=== PATIENT | male | born 1960 | race Caucasian/White ===

== ENCOUNTER 2023-08-13 20:53 | Observation (INO) | payer MEDICARE, SELFPAY ==
[2023-08-13 15:51] VITALS: BP 126/86; BMI 24.4
--- NOTE | 2023-08-13 16:09 | ED.CVA ---
History of Present Illness
General
Chief Complaint: CVA/TIA Symptoms
Time Seen by Provider: 08/13/23 16:00
Onset of Stroke Symptoms
Onset of symptoms known: Yes
Date of onset of symptoms: 08/13/23
Travel History
Have you had any contact with someone who has COVID-19?: No
Do you have any symptoms of coronavirus? Fever > 100 degrees, chills, cough, shortness of breath, sore throat, loss of taste or smell, muscle aches, or headache?: No
History of Present Illness
History of Present Illness:
63-year-old male with history of coronary artery disease, myocardial infarction status post thrombectomy and RCA stent and hyperlipidemia presents to the emergency department for evaluation of word finding difficulties ongoing throughout today.
Somewhat vague but the patient and his partner cannot give me an exact time of onset of symptoms. Patient was apparently normal last night. 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
that he cannot complete sentences fully. He does report lightheadedness and describes a 'warmth' in his head currently. Denies any chest pain or dyspnea. No lower extremity paresthesias or weakness. He is on baby aspirin and statins currently
Past History
Past History
ED Past Medical History: CAD and Other (HIV+, Depression)
ED Past Surgical History: None and Cardiac (Stents)
Social History
Tobacco: Non-smoker
Alcohol: None
Drug: None
Personal: Single
Living: with family
Employment: Employed
Family History
Family History: CAD
Review of Systems
Review of Systems
Allergies reviewed?: Yes
All Other Systems: ROS reviewed and negative except as documented in HPI and ROS
Phy Exam
Physical Exam
Physical Exam:
GEN: Well appearing, NAD, WDWN
HEENT: Oral mucosa moist, no scleral icterus
Cardiac: Regular rate
Lung: No respiratory distress, no tachypnea
MSK: No gross deformity or injuries
Skin: Good color, no pallor or jaundice, no rashes
Neuro: LOC: Alert, responsive, oriented fully, follows commands
EOM: No gaze deficit
Visual avendaño: No hemianopia
Facial: No facial palsy/paralysis
LUE: No drift
RUE: No drift
LLE: No drift
RLE: No drift
Ataxia: No limb ataxia
Sensation: No sensation loss
Language: No aphasia or dysarthria
Extinction: No inattention
Psych: Calm, cooperative
Course
Orders/Labs/Results
Orders:
Orders
08/13/23 15:54
Electrocardiogram (*1) Urgent
Reason for Study: Other
Other Reason for Exam: Possible Stroke
CT Head W/o Iv Contrast Urgent
Comment:
Reason For Exam: tia/cva
Bedside Glucose- Treatment ONCE
EKG- Treatment ONCE
IV Insert/Care/Rem.- Treatment PRN
O2 Therapy [RESP] Urgent
Titrate/Wean O2 to maintain O2 sat greater than (%): 93
Special Instructions: MAINTAIN CONTINUOUS O2 SATS > OR = 93%
08/13/23 16:02
Complete Blood Count/With Diff Urgent
Comprehensive Metabolic Panel Urgent
PTT Urgent
Prothrombin Time Urgent
Troponin I Urgent
08/13/23 18:21
CT Head & Neck Angio W/wo IV Urgent
Comment:
Reason For Exam: stroke symptoms
08/13/23 20:29
Alcohol Urgent
Urine Drug Abuse Screen Urgent
Clopidogrel Bisulfate [Plavix] 300 mg PO NOW STA
08/13/23 20:36
Admit/Transfer Patient As Directed
Co-Sign Provider:
Level of Care: Observation services
Assign to:: Telemetry
Physician / Group: Robby
Diagnosis: Strokelike symptom
Reason for Telemetry: CVA/TIA
Date to Stop Telemetry: 08/16/23
Time to Stop Telemetry: 11:00
08/16/23 11:00
DC Protocol for Telemetry ONCE
Abnormal Lab Results
08/13/23
16:02
MCH 32.3 H pg
(27.0-31.0)
RDW 14.6 H %
(11.5-14.5)
Absolute Monos (auto) 0.9 H 10^3/uL
(0.1-0.6)
Lymphocytes % 15.7 L %
(20.5-51.1)
Monocytes % 10.9 H %
(1.7-9.3)
Chloride 95 L mmol/L
(98-107)
Carbon Dioxide 33 H mmol/L
(22-30)
08/13/23 16:02
08/13/23 16:02
Vital Signs
Initial and Last Documented VS:
Initial Vital Signs
Temp Pulse Resp BP Pulse Ox
97.6 F 90 16 126/86 97
08/13/23 15:51 08/13/23 15:51 08/13/23 15:51 08/13/23 15:51 08/13/23 15:51
Last Documented Vital Signs
Temp Pulse Resp BP Pulse Ox
97.6 F 89 18 120/86 96
08/13/23 15:51 08/13/23 17:17 08/13/23 17:17 08/13/23 17:22 08/13/23 17:17
MDM/Problems Addressed
MDM/Problems Addressed:
63-year-old male presents with waxing waning aphasia over the course of the day.
onset is not clear but is not within the thrombolytic window, additionally his symptoms are nondisabling his speech is quite clear and his aphasia seems to be intermittent.
Blood pressure remained stable in the emergency department. Patient was loaded with Plavix per neurology recommendations, CT head and CT angiogram unremarkable. Will be admitted to the hospital service for further stroke workup
*Critical Care Note
Total Time (30-74mins, 75-104mins- exclusive of procedures): Not Applicable
Update Note
Update Note:
1909: Patient reevaluated after CTA, read is still pending. He does have continued intermittent expressive aphasia stumbles over words midsentence. He continues to have no other lateralizing deficits. Discussed case with neurology who recommended
Plavix load instead of maintenance dosage, we will admit him to the hospital for acute stroke
ED Attending Note
-
Portions of this chart may have been created with voice recognition software.� Occasional wrong word or��sound alike� substitutions may have occurred due to the inherent limitations of voice recognition software.
Discharge Plan
Departure
Patient Disposition: Admit
Date of Disposition: 08/13/23
Time of Disposition: 20:32
Admit to: Med/Surg
Presentation/result/management discussed w/ accepting MD/DO: Hospitalist
Discharge Problem:
Cerebrovascular accident (CVA), Expressive aphasia
Prescriptions:
No Action
'Issentress'
800 mg PO DAILY
Patient Comments:
pt. stated that this was an antiviral medication.
diazepam 10 MG tablet
10 mg PO PRN PRN (Reason: anxiety)
duloxetine 60 MG capsule,delayed release(DR/EC)
60 mg PO DAILY
Norvir:
100 mg PO DAILY
Prevista
800 mg PO DAILY
hydrocodone-ibuprofen [Vicoprofen] 1 EACH tablet
1 ea PO PRN PRN (Reason: pain)
loperamide 2 MG capsule
2 mg PO DAILY
valacyclovir 1,000 MG tablet
1,000 mg PO DAILY
aspirin 81 MG tablet,delayed release (DR/EC)
81 mg PO BID
ranitidine HCl [Zantac] 150 MG tablet
150 mg PO BID
pravastatin 20 MG tablet
20 mg PO DAILY
lisinopril 5 MG tablet
5 mg PO DAILY
metoprolol succinate [Toprol XL] 25 MG tablet extended release 24 hr
25 mg PO DAILY
amoxicillin-pot clavulanate 1 TABLET tablet
1 tab PO Q12 Qty: 19 0RF
Referrals:
UNKNOWN - PT DOES,NOT KNOW [Family Provider] -
[2023-08-13 16:17] LABS: % Basophils 0.4 % (0-2); % Immature Granulocytes 0.4 % (0-0.5); % Lymphocytes 15.7 % (20.5-51.1); % Monocytes 10.9 % (1.7-9.3); % Neutrophils 71.6 % (42.2-75.2); Absolute Eosinophils 0.1 10^3/uL (0-0.7); Absolute Lymphocytes 1.3 10^3/uL (1.2-3.4); Absolute Monocytes 0.9 10^3/uL (0.1-0.6); Absolute Neutrophils 5.8 10^3/uL (1.4-6.5); Hematocrit 47.5 % (39.0-52.0); Hemoglobin 16.5 g/dL (13.0-18.0); Mean Corp Hgb Conc. 34.7 g/dL (33.0-37.0); Mean Corpuscular Hgb 32.3 pg (27.0-31.0); Mean Platelet Volume 8.8 fL (7.4-10.4); Nucleated Red Blood Cells % 0 % (-); Platelet Count 159 10^3/uL (130-400); Red Blood Cell Count 5.11 10^6/uL (4.70-6.10); Red Cell Dist. Width 14.6 % (11.5-14.5); White Blood Cell Count 8.1 10^3/uL (4.8-10.8)
[2023-08-13 16:24] LABS: ALT (SGPT) 24 U/L (0-50); AST (SGOT) 42 U/L (17-59); Albumin 4.6 g/dl (3.5-5.0); Alkaline Phosphatase 42 U/L (38-126); Blood Urea Nitrogen 12 mg/dl (9-20); Calcium 9.4 mg/dl (8.4-10.2); Carbon Dioxide 33 mmol/L (22-30); Chloride 95 mmol/L (98-107); Estimated Creatinine Clearance 93 ml/min; Glucose 99 mg/dl (70-99); INR 1.03; PT 13.3 Sec (11.4-14.6); Sodium 135 mmol/L (135-145); Total Bilirubin 1.3 mg/dl (0.2-1.3); Total Protein 7.5 g/dl (6.3-8.2); eGFR > 60.00
[2023-08-13 16:25] LABS: APTT 25.2 Sec (23.4-35.0)
[2023-08-13 16:27] LABS: Glucose - Point of Care 83 mg/dl (70-99)
[2023-08-13 16:36] LABS: Troponin I 0.013 ng/ml
[2023-08-13 17:22] VITALS: BP 120/86
--- NOTE | 2023-08-13 20:33 | HPS.HSE ---
Family Physician
-
Family Physician: NOT KNOW UNKNOWN - PT DOES
Medical History
Allergies / Home Medications
Allergies reflects when Allergies were last updated in [facility].
Home Medications with original date entered in [facility]
Physical Exam
Vital Signs
Vital Signs
Temp Pulse Resp BP Pulse Ox
97.6 F 89 18 120/86 96
08/13/23 15:51 08/13/23 17:17 08/13/23 17:17 08/13/23 17:22 08/13/23 17:17
Laboratory Results
-
08/13/23 16:02
08/13/23 16:02
Laboratory Results
PT 13.3 Sec (11.4-14.6) 08/13/23 16:02
INR 1.03 08/13/23 16:02
APTT 25.2 Sec (23.4-35.0) 08/13/23 16:02
Total Bilirubin 1.3 mg/dl (0.2-1.3) 08/13/23 16:02
AST 42 U/L (17-59) 08/13/23 16:02
ALT 24 U/L (0-50) 08/13/23 16:02
Alkaline Phosphatase 42 U/L (38-126) 08/13/23 16:02
Troponin I 0.013 ng/ml 08/13/23 16:02
CTA head and neck:
The cervical carotid and vertebral arteries are patent without significant plaque, stenosis, occlusion, or dissection.
No [place] of Rodríguez region aneurysm or stenosis.
No cerebral artery significant plaque, stenosis, thrombus, or occlusion.
CT head: No acute intracranial abnormalities
EKG showed normal sinus rhythm at around 94, [place] 146, QTc 458, normal axis, evidence of prior inferior infarct otherwise no acute abnormalities
Data Reviewed
-
Diagnostic Radiology: Report Reviewed by me and Discussed with Patient
Medical Tests (Nuc Med, Echo, EKG etc): Image Personally Visualized and interpreted, Report Reviewed by me and Discussed with Patient
Lab Data: Labs Reviewed by me and Discussed with Patient
Old Records: Reviewed
Impression/Plan
-
IMPRESSION:
PLAN:
--- NOTE | 2023-08-13 20:39 | HPS.HSE ---
Addendum entered and electronically signed by Guy Bustamante MD 08/13/23 21:14:
Also some IV fluids with normal saline 75 ml/hour x 2 bag with close monitoring for fluid status is looks dry and pressure in the low normal side to keep pressure on the high side
Original Note:
Family Physician
-
Family Physician: NOT KNOW UNKNOWN - PT DOES
Chief Complaint
-
Expressive aphasia
History of Present Illness
63-year-old male with history of chronic systolic congestive heart failure EF around 45%, HIV, coronary artery disease status post stent placed many years ago, presented to the hospital complaining of expressive aphasia, patient able to provide the
information sounds Frustrated because of ability occasionally to express what he wanted to say.
Admitted him to bed last night he was again this morning when he woke up he did not feel right the time went by he noticed he had difficulty expressing what he wanted to say.
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 Eventually decided come to the hospital, or clearly obvious having
expressive aphasia, denies any weakness or numbness in extremities, no chest pain or shortness of breath or fever or chills or any syncope or palpitation, no vision change and no syncope.
No urinary or GI symptoms, no seizure-like activity or weakness.
He injected himself a dose of testosterone which she bought from [place] and he is managing on his own.
Workup in the ER basically showed no acute abnormalities.
He is awake, alert and oriented x 3, hold appropriate conversation but occasionally have difficulty speaking and expressing his thoughts.
Urology been contacted by the ER he was loaded with Plavix 300 mg daily.
Medical History
Past Medical History
Past Medical History: Reports Other
Additional Past Medical History:
Past medical history reviewed:
Coronary artery disease status post stents
Chronic systolic congestive failure
Echo 2016 showed EF around 45%
Dyslipidemia
GERD.
Hypertension
HIV
Insomnia
Testosterone deficiency
Social history: Lives at home with his partner, denies smoking alcohol use but uses marijuana daily.
Family history: Mother had a TIA also has history of hypertension and coronary artery disease.
Past Surgical History: Reports Other
Social History
Unable to obtain full social history at this time due to: Other
Family History
Family History: Other
Allergies / Home Medications
Allergies reflects when Allergies were last updated in [facility].
Home Medications with original date entered in [facility]
Allergy/Medication List:
Allergies
Allergy/AdvReac Type Severity Reaction Status Date / Time
efavirenz [From [facility]] Allergy Rash Verified 08/13/23 15:53
Home Medications
Medication reconciled with the patient.
aspirin 81 mg tablet,delayed release 81 mg PO BID r (Toprol XL) 25 mg PO DAILY 12/15/14
pravastatin 80 mg tablet 20 mg PO DAILY 12/15/14
Trazodone 150 mg at the bedside
Temazepam 15 mg at bedtime
Biktarvy 1 tablet daily
All blood pressure medication he cannot recall
Testosterone enanthate which she brought from [place] and inject himself or regularly.
Review of Systems
-
A 12 point ROS was completed and negative except as noted: Yes
Physical Exam
Vital Signs
Vital Signs
Temp Pulse Resp BP Pulse Ox
97.6 F 89 18 120/86 96
08/13/23 15:51 08/13/23 17:17 08/13/23 17:17 08/13/23 17:22 08/13/23 17:17
physical exam:
General: Alopecia capitis no hair on head, awake, alert and oriented x3, not in distress and sounds frustrated occasionally when he have difficulty expressing his thoughts.
HEENT: No active discharge, ecchymosis or bruising, moist lips, tongue and mucous membrane.
Eyes: No discharge or red conjunctiva, no nystagmus, pupils are reactive and equal
Neck:Supple, no JVD no bruit no goiter.
Respiratory: Normal AP contour and diameter, normal chest wall movement, normal respiratory effort, no respiratory distress,
Lungs: Good air entry bilaterally, no wheezing or rhonchi, no rales or crackles
Heart: S1, S2 regular, normal rate, no added sound.
Gastrointestinal: Positive bowel sounds, soft, nontender, no guarding or rigidity or organomegaly
Musculoskeletal: , no chest wall abnormality or tenderness. All joints and extremities have good range of motion, no muscle tenderness or any joint swelling or tenderness.
Extremities: No pitting edema, good peripheral pulses, good range of motion
Skin: Warm and dry, no ulceration, normal color.
Neurological: Awake, alert and oriented x3, cranial nerve II-XII grossly intact, speech is dysarthric, with normal thought process, extension intention intact, cerebellar sign intact, good muscle tone, normal sensory and motor function, visual field
and acuity intact, NIH score basically is condition on discharge: Awake, alert and oriented x3, answer question properly, able to make own decision and take care of activities of daily living, speech clear and comprehensive, continent of the bowel
and bladder, ambulate without orthopedic assistant, goes home where lives with the family independently.
Psychiatric: Normal mood, normal thought and judgment, normal affect,
Physical Exam
General: Other
Laboratory Results
-
08/13/23 16:02
08/13/23 16:02
Laboratory Results
PT 13.3 Sec (11.4-14.6) 08/13/23 16:02
INR 1.03 08/13/23 16:02
APTT 25.2 Sec (23.4-35.0) 08/13/23 16:02
Total Bilirubin 1.3 mg/dl (0.2-1.3) 08/13/23 16:02
AST 42 U/L (17-59) 08/13/23 16:02
ALT 24 U/L (0-50) 08/13/23 16:02
Alkaline Phosphatase 42 U/L (38-126) 08/13/23 16:02
Troponin I 0.013 ng/ml 08/13/23 16:02
CTA head and neck:
The cervical carotid and vertebral arteries are patent without significant plaque, stenosis, occlusion, or dissection.
No [place] of Rodríguez region aneurysm or stenosis.
No cerebral artery significant plaque, stenosis, thrombus, or occlusion.
CT head: No acute intracranial abnormalities
EKG showed normal sinus rhythm at around 94, [place] 146, QTc 458, normal axis, evidence of prior inferior infarct otherwise no acute abnormalities
Data Reviewed
-
Diagnostic Radiology: Report Reviewed by me and Discussed with Patient
Medical Tests (Nuc Med, Echo, EKG etc): Image Personally Visualized and interpreted, Report Reviewed by me and Discussed with Patient
Lab Data: Labs Reviewed by me and Discussed with Patient
Old Records: Reviewed
Impression/Plan
-
IMPRESSION:
63-year-old male with history of HIV, coronary artery disease status post stent, chronic systolic congestive heart failure with EF around 45%, presented to the hospital after he has been having daily and progressively worsening expressive aphasia,
concern for TIA or stroke, doubt related to his HIV history is look like will consult on CT head did not show any abnormality or mass lesion, testosterone injection could be the culprit as he [place] in [place] and injecting self regularly.
Expressive aphasia concerning for stroke or TIA
Testosterone deficiency inject himself with self purchased testosterone in [place]
History of HIV
Chronic solid congestive heart failure EF around 45%, stable
Coronary artery disease status post stent
Hypertension
Insomnia
PLAN:
Signs and symptoms concerning for stroke or TIA specially with multiple risk factors including coronary artery disease, hypertension, CHF, no injections of his testosterone when he brought it June of this year from [place].
Potential for reviewed and negative
To complete workup with an MRI of brain
Echo
Cardiac monitoring
Neurology consult
PT OT neurocheck
A candidate for tPA since she woke up with not feeling right and symptoms past the window. And his NIH score is 2
Check A1c and lipid panel
Recheck lab
Patient takes aspirin 80 mg twice daily will make it once a day and loaded with Plavix 300 mg per neurology recommendation we will continue 75 mg daily
Takes pravastatin 80 mg daily will continue
Given he cannot recall his blood pressure medication we will hold this pressure on the low normal side
IV fluid to keep pressure on the high side until picture clears.
Continue trazodone, temazepam and Biktarvy
All discussed with the patient in detail expressed understanding
CODE STATUS full code
DVT prophylax Lovenox
[2023-08-13] MEDS: PLAVIX 300 MG PO (21:32)
[2023-08-13 22:00] VITALS: BP 143/92
[2023-08-13 22:02] VITALS: BMI 24.6
[2023-08-13 22:26] LABS: Alcohol None Detected
[2023-08-13] MEDS: PRAVACHOL 80 MG PO (22:29)
[2023-08-13] MEDS: NSS 1000 IV (22:29)
[2023-08-13] MEDS: RESTORIL 15 MG PO (22:29)
[2023-08-13] MEDS: DESYREL 150 MG PO (22:29)
[2023-08-13 23:30] VITALS: BP 127/75
[2023-08-13 23:31] LABS: Troponin I < 0.012 ng/ml
[2023-08-14 03:15] VITALS: BP 125/81
[2023-08-14 04:34] LABS: Marijuana Positive (Negative)
[2023-08-14 04:35] LABS: Benzodiazepines Positive (Negative); Opiates Positive (Negative); Tricyclic Antidepressants Positive (Negative)
[2023-08-14 04:36] LABS: Amphetamines Negative (Negative); Barbiturates Negative (Negative); Buprenorphine Negative (Negative); Cocaine Negative (Negative); Methadone Negative (Negative); Methamphetamines Negative (Negative); Phencyclidine Negative (Negative)
[2023-08-14 04:48] LABS: Fentanyl, Urine Negative (Negative)
[2023-08-14 07:30] VITALS: BP 122/75
--- NOTE | 2023-08-14 08:09 | CON.NEURO4 ---
Addendum entered and electronically signed by Gurpreet Farrar MD 08/14/23 13:50:
I saw and evaluated the patient reviewed the note by Aida Robins agree the findings the following comments:
63-year-old right-handed male with a past no history of coronary artery disease, hypertension, HIV, heart failure presents to the hospital with acute onset of expressive aphasia starting the morning of 08/11. Patient reports that the symptoms are
improving but they are still present to a minor extent. He has no history of TIA or stroke or similar episodes of speech difficulty or any history of migraines. Has been compliant with medications for HIV with no recent issues.
Patient reports using 'poppers' (Amyl Nitrate) as a recreational drug on the evening of 08/10 using around 3 doses of this and also using some edible marijuana that night as well.
Neurologic examination shows rare nonfluent speech, repeats complex phrases obeys simple commands and multistep commands well, names simple objects consistently, comprehension function is good praxis is normal normal attention. Cranial nerves and
motor function normal.
CTA of the head and neck with no significant stenosis occlusions or vascular malformations in the head or neck
MRI of the brain does not show any acute infarct
UDS positive for THC, benzodiazepine, Tricyclics, Opiates
Assessment: Suspicion is greatest for the effects of amyl nitrate and edible THC producing neurologic symptoms manifesting with aphasia. MRI brain was a good study and I think it would be inappropriate to call this and MRI negative
infarction/stroke in the context of the recent substance use.
Recommendations
-Would stop Plavix and continue on aspirin monotherapy for antiplatelet
-Encourage stopping the 'poppers' (Amyl Nitrate)
-Follow up final TTE read
-Goal normotension
-No barriers to discharge from my standpoint
Original Note:
Documented by User: Aida Silverman NP 08/14/23 11:50
Consultation - Neurology 4
-
CONSULTING PHYSICIAN: Miley Farrar MD
REFERRING PHYSICIAN: Hospitalists/Dr. Bustamante
DICTATED BY: OSITO Mckeon
DATE/TIME OF REQUEST: 08/13/23
DATE/TIME OF CONSULTATION: 08/14/23
Reason for Consultation: Speech difficulty
History of Present Illness:
This is a 63-year-old right-handed male who has presented to the hospital with report of expressive aphasia. Patient reports feeling slightly 'unwell' starting two days ago on 08/12/23, he is unable to describe this further. This general sense of
feeling unwell persisted yesterday (08/13/23) and progressed as the day went on. 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 He could understand what people were saying
to him but when he tried to talk the words were not sounding like what he was trying to say. This persisted throughout the 2 hour open house, prompting his partner to bring him to the ER for evaluation. CT head and CTA head/neck were obtained on
arrival and are negative for any acute abnormalities. He was not a candidate for TNK/IAT Due to NIHSS<6 and no LVO. He is already taking aspirin 81mg daily for cardiac purposes, and he was loaded with Plavix 300mg in the ER. Today, he reports that
his speech is improved but not 100% back to normal, he still reports some word finding difficulty. He reports having a mild headache and light-headed sensation yesterday, and a mild headache at the top of his head persists today. He denies any
vision changes, swallowing difficulty, numbness, weakness, chest pain, palpitations, and shortness of breath. He had a respiratory illness in June 2023 but denies any recent cold symptoms. He does reports intermittent occasional tingling in
bilateral feet and hands for the past several months. He denies any history of TIA, stroke, or speech difficulty in the past. He is taking temazepam, Xanax, diazepam, and trazodone PRN for insomnia, he denies any recent changes in this regimen. He
sniffs 'poppers' occasionally and does report doing this three nights ago on 08/11/23. He is also self-injecting testosterone that he bought from [employer].
Past Medical History: HIV, OR, HTN, HLD, CHF, GERD, depression, insomnia, testosterone deficiency
Surgical History: RCA stent
Family History: Father- multiple sclerosis
Social History: Former alcohol. Denies tobacco. Occasionally sniffs 'poppers.'
Allergies: Efavirenz.
Home Medications: See below.
Review of Symptoms:
Patient denies any fever, chest pain, shortness of breath, GI or symptoms.
�Per the HPI.�All systems are reviewed negative except above.
Physical Exam:
The patient is afebrile, abdomen is nondistended, breathing is unlabored, skin is warm and dry, no edema.
NIH Stroke Scale:
I performed the NIH stroke scale on the patient on 08/14/23 at 0830. The patient scored 1 points on the NIH stroke scale assessment, which were assigned as follows: See below.
Neurologic Examination:
The patient is awake, alert and oriented x 3. He is able to follow commands and answer questions appropriately. There is very mild aphasia, no dysarthria. On cranial nerve assessment, pupils are 3 mm bilateral, round and reactive to light and
accommodation. Visual simmons are full. Extraocular movements are intact. Facial sensations are intact and bilaterally symmetrical, there is no facial asymmetry. Hearing is intact bilaterally to normal conversation volume. Tongue palate and uvula are
midline. Sternocleidomastoid strengths are full bilaterally. Motor strengths are 5/5 bilateral upper and lower extremities on medical [employer] [place] scale. There is no drift or involuntary movement noted. Deep tendon reflexes are 1+ bilateral
upper and lower extremities and Babinski is absent bilaterally. Sensations of touch, temperature and vibration are intact and bilaterally symmetrical. There was no extinction noted on double simultaneous stimulation. Coordination is intact by finger
to nose bilaterally.
Lab Results: See below.
Neuro Imaging:
1. CT Head 08/13/23: No acute intracranial abnormality noted.
2. CTA Head/Neck 08/13/23: The cervical carotid and vertebral arteries are patent without significant plaque, stenosis, occlusion, or dissection. No [place] region aneurysm or stenosis. No cerebral artery significant plaque, stenosis,
thrombus, or occlusion.
Differentials for the patient's presentation include:
1. TIA or small left hemisphere ischemic stroke possibly producing speech changes.
2. Metabolic abnormality; infectious, polypharmacy, possibly producing speech changes.
Patient has the following risk factors for their symptoms: HTN, HLD, polypharmacy
IV Tenecteplase/IAT candidacy: Not a candidate due to NIHSS <6, no LVO.
Recommendations:
-Continue DAPT with aspirin 81mg and Plavix 75mg daily x21 days. After 21 days, discontinue Plavix and continue aspirin 81mg daily only, indefinitely.
-Verify now aspirin testing ordered/pending.
-MRI brain noncontrast ordered/pending.
-TTE ordered/pending.
-LDL goal <70. LDL is 67. Continue home pravastatin 20mg daily as LDL is at goal.
-Goal normoglycemia, hbA1c is 5.4.
-NIHSS and neurological checks per unit guidelines.
-Provide patient with a stroke education packet.
-PT/OT/ST evaluations.
-DVT prophylaxis.
-Will follow pending results.
Discussed patient care with: Dr. Farrar, the patient
NIH Stroke Score
Subsequent NIH Scale
Date of Subsequent NIH Scale: 08/14/23
Time of Subsequent NIH Scale: 08:30
NIH Stroke Score
Level of Consciousness: 0 - Alert
LOC Questions: 0-Answers both correctly
LOC Commands: 0-Performs both correctly
Best Horizontal Gaze: 0-Normal
Visual Simmons: 0=Normal, no visual loss
Facial Palsy: 0=Normal, symmetrical
Motor - Right Arm: 0=No drift 10 seconds
Motor - Left Arm: 0=No drift 10 seconds
Motor - Right Le-No drift 5 seconds
Motor - Left Le-No drift 5 seconds
Limb Ataxia: 0-Absent
Sensation: 0-Normal
Best Language: 1-Mild aphasia
Dysarthria: 0-Normal
Extinction and Inattention: 0-No abnormality
Total Score:: 1
Vital Signs and Labs
-
Vital Signs and Labs:
Vital Signs
Temp Pulse Resp BP Pulse Ox
98.2 F 93 16 122/75 94
08/14/23 07:30 08/14/23 07:30 08/14/23 07:30 08/14/23 07:30 08/14/23 07:30
Lab Results
08/14/23 07:45
08/14/23 07:45
PT 13.3 Sec (11.4-14.6) 08/13/23 16:02
INR 1.03 08/13/23 16:02
APTT 25.2 Sec (23.4-35.0) 08/13/23 16:02
Sodium 133 mmol/L (135-145) L 08/14/23 07:45
Potassium 4.0 mmol/L (3.5-5.1) 08/14/23 07:45
BUN 13 mg/dl (9-20) 08/14/23 07:45
Glucose 73 mg/dl (70-99) 08/14/23 07:45
Calcium 8.4 mg/dl (8.4-10.2) 08/14/23 07:45
LDL Cholesterol, Calc 67 mg/dl 08/14/23 07:45
Vitamin B12 523 pg/ml (239-931) 08/14/23 07:45
Ur Buprenorphine Negative (Negative) 08/14/23 04:09
Medications
-
Active Medications
Generic Name Dose Route Start Last Admin
Trade Name Freq PRN Reason Stop Dose Admin
Acetaminophen 650 mg 08/13/23 21:46
Acetaminophen 650 Mg Rectal Suppository RECTAL 09/10/23 21:45
Q4HPRN PRN
BENÍTEZ, mild pain, or temp >100.4F
Acetaminophen 650 mg 08/13/23 21:46
Acetaminophen 325 Mg Tablet PO 09/10/23 21:45
Q4HPRN PRN
BENÍTEZ, mild pain, or temp >100.4F
Aspirin 81 mg 08/14/23 08:00 08/14/23 09:12
Aspirin 81 Mg Chewable Tablet PO 09/11/23 07:59 81 mg
DAILY CARLOS Administration
Bictegravir/Emtricitabine/Tenofovir 1 tablet 08/14/23 08:00 08/14/23 09:12
Biktarvy (Bictegravir/Emtricitabine/Tenofovir) Tablet PO 09/11/23 07:59 1 tablet
DAILY CARLOS Administration
Clopidogrel Bisulfate 75 mg 08/14/23 08:00 08/14/23 09:12
Clopidogrel 75 Mg Tablet PO 09/11/23 07:59 75 mg
DAILY CARLOS Administration
Enoxaparin Sodium 40 mg 08/14/23 18:00
Enoxaparin Sodium 40 Mg/0.4 Ml Syringe SC 09/11/23 17:59
QPM CARLOS
Sodium Chloride 1,000 mls @ 70 mls/hr 08/13/23 21:15 08/13/23 22:29
Nss IV 08/15/23 01:49 1,000 mls
[id number] CARLOS Administration
Pravastatin Sodium 80 mg 08/13/23 21:46 08/13/23 22:29
Pravastatin 40 Mg Tablet PO 09/10/23 21:45 80 mg
QPM CARLOS Administration
Temazepam 15 mg 08/13/23 22:00 08/13/23 22:29
Temazepam 15 Mg Capsule PO 09/10/23 21:59 15 mg
HS CARLOS Administration
Trazodone HCl 150 mg 08/13/23 22:00 08/13/23 22:29
Trazodone 150 Mg Tablet PO 09/10/23 21:59 150 mg
HS CARLOS Administration
Home Medications
Medication Instructions Recorded
'Issentress' 800 mg PO DAILY Infection 12/19/11
Norvir: 100 mg PO DAILY Infection 12/19/11
diazepam 10 mg tablet 10 mg PO PRN PRN anxiety 12/19/11
duloxetine 60 mg capsule,delayed 60 mg PO DAILY Neurological 12/19/11
release Condition
Prevista 800 mg PO DAILY Infection 12/20/11
aspirin 81 mg tablet,delayed 81 mg PO BID Blood Clot 12/15/14
release Prevention/Tx
hydrocodone 7.5 mg-ibuprofen 200 1 ea PO PRN PRN pain 12/15/14
mg tablet (Vicoprofen)
lisinopril 5 mg tablet 5 mg PO DAILY Blood Pressure 12/15/14
loperamide 2 mg capsule 2 mg PO DAILY diarrhea 12/15/14
metoprolol succinate 25 mg 25 mg PO DAILY Blood Pressure 12/15/14
tablet,extended release 24 hr
(Toprol XL)
pravastatin 20 mg tablet 20 mg PO DAILY High Cholesterol 12/15/14
ranitidine HCl 150 mg tablet 150 mg PO BID Gastrointestinal 12/15/14
(Zantac) Issue
valacyclovir 1 gram tablet 1,000 mg PO DAILY Infection 12/15/14
amoxicillin 875 mg-potassium 1 tab PO Q12 Infection 08/14/23
clavulanate 125 mg tablet

Documented by User: Gurpreet Farrar MD 08/14/23 13:45
NIH Stroke Score
NIH Stroke Score
Total Score:: 1
[2023-08-14 08:11] LABS: Hematocrit 45.4 % (39.0-52.0); Hemoglobin 15.6 g/dL (13.0-18.0); Mean Corp Hgb Conc. 34.4 g/dL (33.0-37.0); Mean Corpuscular Hgb 31.8 pg (27.0-31.0); Mean Corpuscular Volume 92.5 fL (80.0-94.0); Mean Platelet Volume 8.9 fL (7.4-10.4); Platelet Count 150 10^3/uL (130-400); Red Blood Cell Count 4.91 10^6/uL (4.70-6.10); Red Cell Dist. Width 14.6 % (11.5-14.5); White Blood Cell Count 6.3 10^3/uL (4.8-10.8)
[2023-08-14 08:34] LABS: Troponin I < 0.012 ng/ml
[2023-08-14 08:52] LABS: Blood Urea Nitrogen 13 mg/dl (9-20); Calcium 8.4 mg/dl (8.4-10.2); Carbon Dioxide 27 mmol/L (22-30); Chloride 102 mmol/L (98-107); Estimated Creatinine Clearance 93 ml/min; Glucose 73 mg/dl (70-99); HDL Cholesterol 24 mg/dl; LDL Cholesterol, Calculated 67 mg/dl; Sodium 133 mmol/L (135-145); Total Cholesterol 112 mg/dl (50-199); Triglyceride 105 mg/dl (10-149); Very Low Density Lipoprotein 21 mg/dl (0-30); eGFR > 60.00
[2023-08-14] MEDS: BIKTARVY 50-200-25 MG TABLET 1 TABLET PO (09:12)
[2023-08-14] MEDS: LOW STRENGTH ASPIRIN 81 MG PO (09:12)
[2023-08-14] MEDS: PLAVIX 75 MG PO (09:12)
[2023-08-14 09:22] LABS: TSH Reflex To Free T4 4.75 uIU/ml (0.47-4.68)
[2023-08-14 09:27] LABS: Glycohemoglobin (HgbA1c) 5.4 % (4.0-5.6)
--- NOTE | 2023-08-14 09:46 | PTOTSP ---
Speech Therapy Evaluation
Swallowing deemed wfl without overt signs of aspiration. Recommend Regular Solids and Thin Liquids
Patient presents with mild expressive language deficits that should be further assessed during comprehensive language assessment in outpatient setting. Discussed this with patient and provided pamphlet for outpatient services at [facility].
[2023-08-14 09:49] LABS: Free T4 0.85 ng/dl (0.78-2.19)
[2023-08-14 09:57] LABS: Folate > 20.0 ng/ml (2.76-20); Vitamin B12 523 pg/ml (239-931)
[2023-08-14 11:25] VITALS: BP 130/82
--- NOTE | 2023-08-14 12:47 | CM ---
Patient seen bedside, initial assessment completed. Patient resides with forensic investigator and significant other in two story home with a first floor set up. Patient reports being independent with ADLS/IADLs, exercising regularly, denies DME, VN, or SNF.
Patient confirms PCP Jaclyn Mayer, pharmacy [facility] in [place]. KHAN form reviewed, refused to sign, placed in patients chart. Patient inquiring if he can eat, message relayed to nurse. CM will continue to follow for discharge planning needs.
Plan; home no needs likely.
[2023-08-14 13:38] LABS: VerifyNow Aspirin 378 ARU
[2023-08-14] MEDS: NSS IV (15:07)
[2023-08-14 15:35] VITALS: BP 101/71
--- NOTE | 2023-08-14 17:40 | PTCARENOTE ---
Rn Flow boat tender-Patient brought to DC lounge to wait for ride.
--- NOTE | 2023-08-14 17:48 | PTCARENOTE ---
Discharge instructions reviewed with patient. IV site removed. Pt taken to discharge area by staff and wheelchair.
--- NOTE | 2023-08-14 17:54 | W.DCSUMMARY ---
Documented by User: Johann Barbosa MD, Resident 08/14/23 18:27
Discharge Summary
Discharge Data
Date of Admission: 08/13/23
Date of Discharge: 08/14/23
-
Pending Results: No
Hospital Course
Discharge Diagnosis
Expressive aphasia concerning for stroke or TIA
Testosterone deficiency inject himself with self purchased testosterone in [place]
History of HIV
Chronic solid congestive heart failure EF around 45%, stable
Coronary artery disease status post stent
Hypertension
Insomnia
Hospital course :
63-year-old male with history of chronic systolic congestive heart failure EF around 45%, HIV, coronary artery disease status post stent placed many years ago, presented to the ED complaining of expressive aphasia, patient able to provide the
information sounds Frustrated because of ability occasionally to express what he wanted to say. On admission in ED he was not within the thrombolytic window, normotensive, normoglycemic. Neurology was consulted and the patient was started on
Plavix. Labs were done, mild hyponatremia (133), elevated TSH and folate level. UDS positive for opiates, marijuana, tricyclics, benzodiazepine. He denies weakness, confusion, lethargy. On discharge the plan is to continue ASA 81 mg and stopping
plavix. Continue Home medications.
History of HIV - continue current regimen
Chronic solid congestive heart failure EF around 45%, stable- continue ASA, metoprolol succinate
Coronary artery disease status post stent- continue ASA, pravastatin
Hypertension- continue lisinopril
Insomnia- continue diazepam
Next, on the date of discharge, the patient's vital signs: Temperature is 97.8 F, Heart Rate is 92 , Blood pressure 101/71, Respiratory rate 18, Pulse Ox is 96
PHYSICAL EXAMINATION:� He is alert, awake, oriented to name, place and time. His head is atraumatic, normocephalic. Neck is supple. Chest is clear to auscultation. Heart is regular late without gallops or murmurs. Abdomen is soft, nondistended, non
tender. Extremities show no peripheral edema.
Discharge Plan
-
Patient Disposition: Home (Routine Discharge)
Discharge Diagnosis/Procedures: expressive aphasia
Diet: Low Sodium
Activity: No restrictions
Instructions: Aphasia (DC)
Referrals:
UNKNOWN - PT DOES,NOT KNOW [Family Provider] -
Prescriptions:
Continued
'Issentress'
800 mg PO DAILY
Patient Comments:
pt. stated that this was an antiviral medication.
diazepam 10 MG tablet
10 mg PO PRN PRN (Reason: anxiety)
duloxetine 60 MG capsule,delayed release(DR/EC)
60 mg PO DAILY
Norvir:
100 mg PO DAILY
Prevista
800 mg PO DAILY
hydrocodone-ibuprofen [Vicoprofen] 1 EACH tablet
1 ea PO PRN PRN (Reason: pain)
loperamide 2 MG capsule
2 mg PO DAILY
valacyclovir 1,000 MG tablet
1,000 mg PO DAILY
aspirin 81 MG tablet,delayed release (DR/EC)
81 mg PO BID
Zantac 150 MG tablet
150 mg PO BID
pravastatin 20 MG tablet
20 mg PO DAILY
lisinopril 5 MG tablet
5 mg PO DAILY
metoprolol succinate [Toprol XL] 25 MG tablet extended release 24 hr
25 mg PO DAILY
Discontinued
amoxicillin-pot clavulanate 1 TABLET tablet
1 tab PO Q12
Discharge Orders:
Discharge Patient (As Directed); Ordered 08/14/23
Ordered By: Johann Barbosa
Discharge Date and Time
Discharge Date/Time: 08/14/23 17:51

Documented by User: Dom Arias MD 08/14/23 19:58
Discharge Summary
Discharge Data
Date of Admission: 08/13/23
Date of Discharge: 08/14/23
Discharge Plan
-
Patient Disposition: Home (Routine Discharge)
Discharge Diagnosis/Procedures: expressive aphasia
Diet: Low Sodium
Activity: No restrictions
Instructions: Aphasia (DC)
Referrals:
UNKNOWN - PT DOES,NOT KNOW [Family Provider] -
Prescriptions:
Continued
'Issentress'
800 mg PO DAILY
Patient Comments:
pt. stated that this was an antiviral medication.
diazepam 10 MG tablet
10 mg PO PRN PRN (Reason: anxiety)
duloxetine 60 MG capsule,delayed release(DR/EC)
60 mg PO DAILY
Norvir:
100 mg PO DAILY
Prevista
800 mg PO DAILY
hydrocodone-ibuprofen [Vicoprofen] 1 EACH tablet
1 ea PO PRN PRN (Reason: pain)
loperamide 2 MG capsule
2 mg PO DAILY
valacyclovir 1,000 MG tablet
1,000 mg PO DAILY
aspirin 81 MG tablet,delayed release (DR/EC)
81 mg PO BID
Zantac 150 MG tablet
150 mg PO BID
pravastatin 20 MG tablet
20 mg PO DAILY
lisinopril 5 MG tablet
5 mg PO DAILY
metoprolol succinate [Toprol XL] 25 MG tablet extended release 24 hr
25 mg PO DAILY
Discontinued
amoxicillin-pot clavulanate 1 TABLET tablet
1 tab PO Q12
Discharge Orders:
Discharge Patient (As Directed); Ordered 08/14/23
Ordered By: Johann Barbosa
Discharge Date and Time
Discharge Date/Time: 08/14/23 17:51
== END 2023-08-14 17:51 | disposition home or self-care (01) ==
LOC: 4 WEST ACU 20:53
PROVIDERS: Physician Assistant; Student in an Organized Health Care Education/Training Program; ADMITTING PHYSICIAN Internal Medicine; ATTENDING PHYSICIAN Family Medicine; EMERGENCY PHYSICIAN Emergency Medicine; OTHER PHYSICIAN Student in an Organized Health Care Education/Training Program
DX: R47.01 Aphasia (principal); R42 Dizziness and giddiness; E87.1 Hypo-osmolality and hyponatremia; I25.10 Atherosclerotic heart disease of native coronary artery without angina pectoris; M50.01 Cervical disc disorder with myelopathy, high cervical region; M48.02 Spinal stenosis, cervical region; I25.2 Old myocardial infarction; I50.22 Chronic systolic (congestive) heart failure; K21.9 Gastro-esophageal reflux disease without esophagitis; I11.0 Hypertensive heart disease with heart failure; G47.00 Insomnia, unspecified; F12.90 Cannabis use, unspecified, uncomplicated; F32.A Depression, unspecified; E78.5 Hyperlipidemia, unspecified; Z79.82 Long term (current) use of aspirin; Z21 Asymptomatic human immunodeficiency virus [HIV] infection status; Z95.5 Presence of coronary angioplasty implant and graft; Z88.8 Allergy status to other drugs, medicaments and biological substances; Z82.0 Family history of epilepsy and other diseases of the nervous system
CPT/HCPCS: 70450; 70496; 70498; 70551; 80048; 80053; 80061; 80306; 80307; 82077; 82607; 82746; 82962; 83036; 84439; 84443; 84484; 85025; 85027; 85576; 85610; 85730; 92523; 93005; 93306; 97162; 97165; 99285; G0378; Q9967